=== PATIENT | female | born 1935 | race Caucasian/White ===

== ENCOUNTER 2019-05-13 18:56 | Inpatient (IN) | payer MEDICARE, MEDICAID ==
[~2019-05-13] VITALS: Ht 157.5 cm; Wt 82.6 kg
[2019-05-13 20:32] LABS: BASOPHILS % 0.8 % (0.0-2.0); EOSINOPHILS % 6.5 % (0.0-5.0); HEMOGLOBIN. 13.4 g/dL (12.0-16.0); LYMPHOCYTES % 38.9 % (20.0-50.0); MEAN CORPUSCULAR HEMOGLOBIN 31.7 pg (28.0-32.0); MEAN CORPUSCULAR VOLUME 90.3 fL (81.0-99.0); MEAN PLATELET VOLUME 6.9 fl (7.4-10.4); MONOCYTES % 7.5 % (2.0-8.0); NEUTROPHILS % 46.3 % (40.0-76.0); PLATELET 349 x1000/uL (130-400); RED BLOOD CELL COUNT 4.21 mill/uL (4.2-5.4)
[2019-05-13 20:37] LABS: CHLORIDE 101 mEq/L (98-107)
[2019-05-13 20:40] LABS: CLARITY URINE CLEAR (CLEAR); COLOR URINE YELLOW (YELLOW); KETONES URINE NEGATIVE (NEGATIVE); LEUKOCYTE ESTERASE URINE TRACE (NEGATIVE); NITRITE URINE NEGATIVE (NEGATIVE); OCCULT BLOOD URINE NEGATIVE (NEGATIVE); PH URINE 7.5 (4.5-8.0); PROTEIN URINE NEGATIVE (NEGATIVE); SPECIFIC GRAVITY URINE 1.003 (1.005-1.030); UROBILINOGEN URINE 0.2 E.U./dL (0.2-1.0)
[2019-05-13 20:46] LABS: T4 FREE 1.54 ng/dL (0.76-1.46)
[2019-05-13] MEDS ORDERED: SODIUM CHLORIDE 0.9% 500 ML IV ONE (21:30)
[2019-05-13] MEDS ORDERED: ACETAMINOPHEN 325MG TABLET PO PRN (21:45)
[2019-05-13] MEDS ORDERED: CLONIDINE 0.1MG TABLET PO PRN (21:45)
[2019-05-13] MEDS ORDERED: ONDANSETRON HCL 4MG/2ML INJ IV PRN (21:45)
[2019-05-14 06:34] LABS: BASOPHILS % 0.7 % (0.0-2.0); EOSINOPHILS % 6.2 % (0.0-5.0); HEMATOCRIT. 34.4 % (36.0-48.0); HEMOGLOBIN. 11.9 g/dL (12.0-16.0); LYMPHOCYTES % 48.9 % (20.0-50.0); MEAN CORPUSCULAR HEMOGLOBIN 31.2 pg (28.0-32.0); MEAN CORPUSCULAR VOLUME 90.5 fL (81.0-99.0); MONOCYTES % 9.6 % (2.0-8.0); NEUTROPHILS % 34.6 % (40.0-76.0); PLATELET 328 x1000/uL (130-400); RED CELL DISTRIBUTION WIDTH 13.3 % (11.6-14.6)
[2019-05-14 06:42] LABS: CHLORIDE 110 mEq/L (98-107)
[2019-05-14] MEDS: SODIUM CHLORIDE 0.9% 1,000 ML IV SCH ×3 (07:45→22:21)
[2019-05-14 12:00] VITALS: BP 123/52
[2019-05-14 13:00] VITALS: BP 152/54
[2019-05-14 16:00] VITALS: BP 93/50
[2019-05-14 20:00] VITALS: BP 120/45
[2019-05-15] VITALS (8 sets, daily range): BP systolic 118–176; BP diastolic 48–79
[2019-05-15] MEDS ORDERED: AMLO10TA4 PO (10:04)
[2019-05-15] MEDS ORDERED: LEVO50TA8 PO (10:04)
[2019-05-15] MEDS ORDERED: BENA20TA10 PO (10:04)
[2019-05-15] MEDS ORDERED: LATA2.5D2 EACHEYE (10:06)
[2019-05-15] MEDS ORDERED: NITR0.4T49 SL (10:08)
[2019-05-15] MEDS: SODIUM CHLORIDE 0.9% 1,000 ML IV SCH (18:17)
[2019-05-16] VITALS: BP_SYST 122; BP_SYST 124; BP_SYST 127; BP_DIAS 55; BP_DIAS 59; BP_DIAS 61
[2019-05-16] MEDS: SODIUM CHLORIDE 0.9% 1,000 ML IV SCH (03:30)
[2019-05-16 04:00] VITALS: BP 110/56
[2019-05-16 08:00] VITALS: BP 125/62
[2019-05-16 08:30] LABS: BASOPHILS % 0.8 % (0.0-2.0); EOSINOPHILS % 6.7 % (0.0-5.0); HEMATOCRIT. 34.5 % (36.0-48.0); HEMOGLOBIN. 11.8 g/dL (12.0-16.0); LYMPHOCYTES % 40.5 % (20.0-50.0); MEAN CORPUSCULAR HEMOGLOBIN 31.4 pg (28.0-32.0); MEAN CORPUSCULAR VOLUME 92.2 fL (81.0-99.0); MEAN PLATELET VOLUME 7.6 fl (7.4-10.4); MONOCYTES % 8.8 % (2.0-8.0); NEUTROPHILS % 43.2 % (40.0-76.0); PLATELET 322 x1000/uL (130-400); RED BLOOD CELL COUNT 3.74 mill/uL (4.2-5.4); RED CELL DISTRIBUTION WIDTH 13.7 % (11.6-14.6)
[2019-05-16 10:07] LABS: CHLORIDE 110 mEq/L (98-107)
[2019-05-16 12:00] VITALS: BP 131/38
[2019-05-16] MEDS ORDERED: BENA20TA10 PO (12:06)
[2019-05-16] MEDS ORDERED: AMLO10TA4 PO (12:06)
[2019-05-16] MEDS ORDERED: LATA2.5D2 EACHEYE (12:06)
== END 2019-05-16 15:30 | disposition home or self-care (01) | DRG 74 ==
LOC: ER 18:56 → 7WST 22:50 → EDBEDREQTM 22:52 → EDBEDREQ 22:52 → ENRESERV 05-14 09:48
PROVIDERS: ADMIT Internal Medicine; ATTEND Internal Medicine
DX: G90.8 Other disorders of autonomic nervous system (principal); E87.1 Hypo-osmolality and hyponatremia; I16.0 Hypertensive urgency; I10 Essential (primary) hypertension; R00.0 Tachycardia, unspecified
CPT/HCPCS: 36415; 71045; 80048; 81003; 83880; 84439; 84443; 84484; 93005; 93306; 93970; 96360; 96361; 97161; 99285; J7030